=== PATIENT | male | born 2000 | race Caucasian/White ===

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

== ENCOUNTER 2023-07-09 18:30 | Emergency (ER) | payer BC ==
[2023-07-09] MEDS ORDERED: DEXAMETHASONE 10 MG/ML VIAL PO STA (18:45)
[2023-07-09] MEDS ORDERED: EPINEPHrine 1 MG/ML AMP IM STA (18:45)
[2023-07-09] MEDS ORDERED: FAMOTIDINE 20 MG TABLET PO STA (18:45)
[2023-07-09] MEDS ORDERED: CHERRY SYRUP 10 ML UDC PO ONE (18:45)
[2023-07-09] MEDS ORDERED: diphenhydrAMINE INJ 50 MG/ML VIAL IM STA (18:45)
--- NOTE | 2023-07-09 18:48 | ED Physician Documentation ---
History of Present Illness - Stated complaint Stated Complaint: BEE STING - Chief complaint Chief Complaint: Allergic Rx - Additonal information Additional information: 23-year-old transgender female presents to the emergency department for evaluation of a bee sting. Does have a history of significant reaction which is included facial swelling, hives and difficulty breathing. Patient was in a car when she was stung by bee on the right forearm. Sting occurred about 10 minutes prior to arrival. At this time she has significant swelling around the sting but no periorbital swelling, tongue lip swelling, dysphonia or difficulty speaking. Denies chest pain or shortness of air. Review of Systems Constitutional: reports: Reviewed and negative Cardiac: reports: Reviewed and negative Respiratory: reports: Reviewed and negative GI: reports: Reviewed and negative Skin: reports: Bite / sting (right forearm) PD PAST MEDICAL HISTORY - Past Medical History Cardiovascular: None Respiratory: None Endocrine/Autoimmune: None GI: None - Past Surgical History Past Surgical History: No - Present Medications Home Medications: Ambulatory Orders Medication Instructions Recorded Confirmed EPINEPHrine [Epinephrine] 0.3 mg IJ ONCE PRN #1 auto.injct 06/29/20 EPINEPHrine [Epinephrine] 0.3 mg IJ ONCE PRN #1 each 07/09/23 - Allergies Allergies/Adverse Reactions: Allergies Allergy/AdvReac Type Severity Reaction Status Date / Time bee venom protein (honey bee) Allergy Hives Verified 07/09/23 18:42 - Social History Does the pt smoke?: No Smoking Status: Never smoker Does the pt drink ETOH?: No Does the pt have substance abuse?: No - Immunizations Immunizations are current?: Yes - POLST Patient has POLST: No PD ED PE NORMAL - General General: Alert and oriented X 3, No acute distress - HEENT HEENT: Atraumatic, Moist mucous membranes, Pharynx benign - Neck Neck: Supple, no meningeal sign - Cardiac Cardiac: RRR, No murmur - Respiratory Respiratory: No respiratory distress, Clear bilaterally - Abdomen Abdomen: Normal bowel sounds, Soft, Non tender - Derm Derm: Normal color, Warm and dry, No rash - Extremities Extremities: No deformity - Neuro Neuro: Alert and oriented X 3, legal receptionist 2-12 intact Eye Opening: Spontaneous Motor: Obeys Commands Verbal: Oriented GCS Score: 15 Results - Vitals Vitals: Vital Signs - 24 hr 07/09/23 07/09/23 07/09/23 18:31 19:10 21:00 Temperature 36.8 C Heart Rate 74 67 76 Respiratory 18 16 18 Rate Blood Pressure 131/86 H 121/80 108/58 L O2 Saturation 100 99 99 Oxygen O2 Source Room air PD Medical Decision Making - ED course Complexity details: d/w patient ED course: 23-year-old transgender female presents to the emergency department for evaluation of a bee sting that occurred just prior to arrival. Occurred on her right forearm while driving. She has a history of significant bee sting allergy which is included generalized hives and facial swelling. On presentation patient was having no obvious systemic reactions but we did administer her 0.3 mg of epinephrine IM as well as 25 mg of Benadryl IV. She did receive Pepcid and Decadron orally. After being observed for multiple hours she was having no significant signs of systemic reaction, or anaphylaxis. As such she is stable for discharge home. Prescription for epinephrine was sent to the [facility] in [place]. Patient was advised to take Benadryl and Pepcid twice daily for the next several days. The usual emergent return precautions for concerns of worsening symptoms, anaphylaxis was discussed. Departure - Departure Disposition: 01 Home, Self Care Clinical Impression: Bee sting Qualifiers: Encounter type: initial encounter Injury intent: accidental or unintentional Qualified Code(s): T63.441A - Toxic effect of venom of bees, accidental (unintentional), initial encounter Condition: Stable Record reviewed to determine appropriate education?: Yes Instructions: ED Bite Sting Insect Gen Allergic React, EpiPen Auto Injector Dc Prescriptions: EPINEPHrine [Epinephrine] 0.3 mg IJ ONCE PRN #1 each PRN Reason: Anaphylaxis Comments: Nereida, You were seen today in the emergency department after a bee sting. You have a history of what sounds like anaphylaxis with bee stings. Today in the emergency department we did give you an epinephrine injection as well as a single dose of Decadron, Benadryl and Pepcid. After multiple hours of observation you have not developed any facial, tongue lip swelling. You have not had any difficulty breathing or chest pain. Because of your history of severe bee sting reactions I am writing a prescription for epinephrine and have sent this to the [facility] in [place]. You should carry it with you at all times. In the future should you have any bee stings you should immediately administer the epinephrine. Over the next 48 to 72 hours I would like you to take Benadryl 25 mg twice daily as well as Pepcid 20 mg also twice daily. The Decadron that you were given today in the emergency department should help with inflammation and swelling and prevent hives over the next 72 hours. Return immediately to the ER if you have any difficulty breathing, talking or develop facial lip or tongue swelling. Forms: PCP List
[2023-07-09 19:15] VITALS: O2SAT 99
[2023-07-09 21:10] VITALS: BP 108/58
== END 2023-07-09 21:56 | disposition home or self-care (01) ==
LOC: ED 18:30
DX: T63.441A Toxic effect of venom of bees, accidental (unintentional), initial encounter (principal)
CPT/HCPCS: 96372; 99283; 99284; A9270; J1200